=== PATIENT | female | born 1985 | race Caucasian/White ===

== ENCOUNTER 2021-04-30 01:46 | Emergency (ER) | payer SELFPAY ==
[~2021-04-30 01:46] MED LIST: MACROBID100 MG PO; MAG-OXIDE 400M400 MG PO; METFORMIN HCL500 M1 PO; METOPROLOL SUCC25 MG PO; SYNTHROID75 MC1 PO; VITAMIN D250000 UNIT PO
[2021-04-30 02:33] LABS: BASOPHIL 0.3 % (0-2); EOSINOPHIL 0.3 % (0-5); HCT 36.9 % (37.0-47.0); HGB 11.7 g/dl (12.5-16.0); LYMPHOCYTE 33.5 % (15-48); MCH 25.3 pg (25.0-31.0); MCHC 31.7 g/dL (32.0-36.0); MCV 79.9 fL (78.0-100.0); MONOCYTE 9.1 % (0-12); MPV 10.5 fL (6.0-9.5); NEUTROPHIL 56.5 % (41-80); NRBC 0; PLT 174 K/uL (150-400); RBC 4.62 M/uL (4.20-5.40); RDW 14.9 % (11.5-14.0); WBC 3.2 K/uL (4.0-10.5)
[2021-04-30 03:11] LABS: ALBUMIN 3.4 g/dL (3.4-5.0); BILIRUBIN - TOTAL 0.2 mg/dL (0.2-1.0); C-REACTIVE PROTEIN 0.4 mg/dL (<=0.90); CREATININE 0.67 mg/dL (0.51-0.95); GLOBULIN (CALCULATION) 3.5 g/dL; POTASSIUM 3.5 mmol/L (3.5-5.1); TOTAL PROTEIN 6.9 g/dL (6.4-8.2)
== END 2021-04-30 05:50 | disposition home or self-care (01) ==
LOC: FER 01:46
PROVIDERS: Emergency Medicine
DX: U07.1 COVID-19 (principal); J12.82 Pneumonia due to coronavirus disease 2019; E03.9 Hypothyroidism, unspecified; Z79.899 Other long term (current) drug therapy
CPT/HCPCS: 36415; 71045; 80053; 82728; 83615; 84484; 85025; 85379; 86140; 93005; 94010; J2405; J7030